=== PATIENT | male | born 1975 | race Caucasian/White ===

== ENCOUNTER → 2019-04-08 | Outpatient (CLI) | payer BC ==
--- NOTE | 2019-04-08 12:45 | ECHOF ---
Referral Reason:I65.2 carotid occlusion, R55 Syncope MEASUREMENTS -------- HEIGHT: 180.3 cm WEIGHT: 79.8 kg BP: IVSd: 0.9 cm (0.6 - 1.1) LVIDd: 4.0 cm (3.9 - 5.3) LVPWd: 0.9 cm (0.6 - 1.1) IVSs: 1.1 cm LVIDs: 2.4 cm LVPWs: 1.4 cm LAESV Index (A-L): 17.38 ml/m Ao Diam: 3.0 cm (2.0 - 3.7) AV Cusp: 1.9 cm (1.5 - 2.6) LA Diam: 2.3 cm (2.7 - 3.8) MV EXCURSION: 12.495 mm (> 18.000) MV EF SLOPE: 65 mm/s (70 - 150) EPSS: 0.6 cm MV E Elkin: 0.58 m/s MV DecT: 304 ms MV A Elkin: 0.56 m/s MV E/A Ratio: 1.03 RAP: 5.00 mmHg RVSP: 21.24 mmHg TAPSE: 25.68 mm FINDINGS -------- Sinus rhythm. This was a technically good study. The left ventricular size is normal. Left ventricular wall thickness is normal. Overall left vent ricular systolic function is normal with, an EF between 55 - 60 %. The diastolic filling pattern is normal for the age of the patient 7.06. The right ventricle is normal in size. The right ventricular systolic function is normal. The left atrial size is normal. Normal LA size by volume 22+/-6 ml/m2. The right atrial size is normal. Interatrial and interventricular septum intact. The aortic valve is trileaflet and appears structurally normal. The mitral valve is normal. There is trace mitral regurgitation. The tricuspid valve appears structurally normal. Trace tricuspid regurgitation present. Right annetta tricular systolic pressure is normal at < 35 mmHg. There is no pulmonic regurgitation present. The aortic root size is normal. Normal inferior vena cava with normal inspiratory collapse consistent with estimated right atrial pre ssure of 5 mmHg. There is no pericardial effusion. CONCLUSIONS -------- 1. Sinus rhythm. 2. This was a technically good study. 3. The left ventricular size is normal. 4. Left ventricular wall thickness is normal. 5. Overall left ventricular systolic function is normal with, an EF between 55 - 60 %. 6. The diastolic filling pattern is normal for the age of the patient 7.06 7. The right ventricle is normal in size. 8. The right ventricular systolic function is normal. 9. The left atrial size is normal. 10. Normal LA size by volume 22+/-6 ml/m2. 11. The right atrial size is normal. 12. Interatrial and interventricular septum intact. 13. The aortic valve is trileaflet and appears structurally normal. 14. The mitral valve is normal. 15. There is trace mitral regurgitation. 16. The tricuspid valve appears structurally normal. 17. Trace tricuspid regurgitation present. 18. Right ventricular systolic pressure is normal at < 35 mmHg. 19. There is no pulmonic regurgitation present. 20. The aortic root size is normal. 21. Normal inferior vena cava with normal inspiratory collapse consistent with estimated right atrial pressure of 5 mmHg. 22. There is no pericardial effusion. [employer]OWER[employer] SUPERVISOR: Amber Martinez RDCS
--- NOTE | 2019-04-08 13:22 | US ---
EXAMINATION TYPE: US carotid duplex BILAT DATE OF EXAM: 04/08/2019 COMPARISON: NONE CLINICAL HISTORY: I65.2 carotid occlusion, R55 Syncope. EXAM MEASUREMENTS: RIGHT: Peak Systolic Velocity (PSV) cm/sec ----- Right CCA: 141.1 ----- Right ICA: 152.4 ----- Right ECA: 89.5 ICA/CCA ratio: 1.1 RIGHT: End Diastole cm/sec ----- Right CCA: 47.4 ----- Right ICA: 42.0 ----- Right ECA: 1.1 LEFT: Peak Systolic Velocity (PSV) cm/sec ----- Left CCA: 145.0 ----- Left ICA: 114.2 ----- Left ECA: 97.6 ICA/CCA ratio: 0.8 LEFT: End Diastole cm/sec ----- Left CCA: 46.5 ----- Left ICA: 50.3 ----- Left ECA: 27.1 VERTEBRALS (direction of flow): Right Vertebral: Antegrade Left Vertebral: Antegrade Rhythm: Normal Mild homogeneous plaque with no significant stenosis Grayscale, color Doppler, spectral Doppler imaging performed of the carotid arteries. Waveform analys is does not show significant stenosis of the internal carotid arteries. IMPRESSION: No hemodynamic significant stenosis of the proximal internal carotid arteries bilaterall y by Doppler criteria, indirect measurement of carotid stenosis Criteria for Assigning % of Stenosis / Diameter reduction (Estimation based on the indirect measurements of the internal carotid artery velocities (ICA PSV). 1. Normal (no stenosis)=ICA PSV < 125 cm/s: ratio < 2.0: ICA EDV<40 cm/s. 2. Less than 50% stenosis=ICA PSV < 125 cm/s: ratio < 2.0: ICA EDV<40 cm/s. 3. 50 to 69% stenosis=ICA PSV of 125 to 230 cm/s: ration 2.0 ? 4.0: ICA EDV 40-100 cm/s. 4. Greater than 70% stenosis to near occlusion= ICA PSV > 230 cm/s: ratio > 4.0: ICA EDV > 100 cm/s. 5. Near occlusion= ICA PSV velocities may be low or undetectable: variable ratio and ICA EDV. 6. Total occlusion=unable to detect flow.
--- NOTE | 2019-04-08 13:29 | EST ---
EXERCISE STRESS DATE OF SERVICE: 04/08/2019 AGE: 44 SEX: Male HT: 6'0" WT: 176 pounds PROTOCOL: Sharif STAGE: III DURATION OF EXERCISE: 9 minutes HEART RATE REST: 77 BLOOD PRESSURE REST: 130/86 MAXIMUM HEART RATE ACHIEVED: 160 MAXIMUM BLOOD PRESSURE: 177/90 85% MPHR: 150 100% MPHR: 177 METS: 10.3 INDICATIONS: CLINICAL INFORMATION: Baseline EKG revealed normal sinus rhythm without significant ST-T changes. There was slight leftward axis. Patient walked for 9 minutes. Maximal heart rate 160 beats per minute which is well above 85%. No angina or arrhythmia. EKG was unremarkable for ischemia. Good exercise capacity with a negative stress test by EKG criteria. MMODL / IJN: [id number] /
== END | disposition home or self-care (01) ==
LOC: RADNMMAIN 08:34
PROVIDERS: ATTEND Family Medicine
DX: I65.29 Occlusion and stenosis of unspecified carotid artery (principal); R55 Syncope and collapse
CPT/HCPCS: 93017; 93306; 93880

== ENCOUNTER → 2022-10-24 | Outpatient (CLI) | payer BC ==
--- NOTE | 2022-10-24 10:27 | MR ---
EXAMINATION TYPE: MR brain/cspine wo/w DATE OF EXAM: 10/24/2022 9:04 AM CLINICAL INDICATION:Male, 47 years old with history of G35 MS, spasticity, finger tingling COMPARISON: 04/05/2014 TECHNIQUE: Multiplanar, multisequence images of the brain and brainstem is performed. Multi planar, multi sequence imaging was performed utilizing: T1-weighted, T2-weighted, and turbo inv ersion recovery imaging of the cervical spine. MR IV Contrast: 9.5 cc Gadavist FINDINGS: BRAIN: Scattered white matter changes some of which are orthogonal to the lateral ventricle. There is no melecio dence of restricted diffusion. These areas are significantly changed from 2014. No abnormal enhanceme nt to suggest active demyelination Diffusion weighted images demonstrate no evidence of a recent infarct or other diffusion abnormality. There is no extra-axial fluid collection. The ventricular system and cisternal spaces are normal i n size and appearance. The brain volume is age appropriate. Midline structures demonstrate normal mo rphology. The craniocervical junction appears within normal limits. The dural venous sinuses appear patent. Post contrast images demonstrate no abnormal enhancement The bone marrow signal is within normal limits. Paranasal sinuses and mastoid air cells: Mild scattered paranasal sinus disease. Visualized orbits: Orbital contents are intact. C-SPINE: Alignment: The cervical vertebral bodies have preserved heights. Alignment is within normal limits gi annetta patient positioning. Bones: Multilevel degenerative disc disease is noted and most pronounced at the C3-C4, C5-C6 vertebra l levels. Old signal is maintained. No abnormal postcontrast enhancement. Cord: Abnormal increased signal involving the posterior spinal cord at the level of C3-C4 which is se en on prior in 2013. No abnormal postcontrast enhancement. Discs: Multilevel disc desiccation is present. C2-C3: No significant disc pathology. The spinal canal is patent. Bilateral facet and uncovertebral joint arthropathy are present with moderate left and mild right neural foraminal stenosis. C3-C4: Left central disc protrusion which impresses upon the spinal cord with moderate spinal canal s tenosis. There is superior migration of 7 mm of disc material. Additionally a right central/foraminal disc protrusion is also present. This narrows the neural foramen. Bilateral facet and uncovertebral joint arthropathy are present with severe bilateral neural foraminal stenosis. C4-C5: A disc osteophyte complex is present which minimally narrows the ventral subarachnoid space. Bilateral facet and uncovertebral joint arthropathy are present with moderate severe right and mild to moderate left neural foraminal stenosis. C5-C6: A disc osteophyte complex is present which minimally narrows the ventral subarachnoid space. Bilateral facet and uncovertebral joint arthropathy are present with mild bilateral neural foraminal stenosis. C6-C7: No significant disc pathology. The spinal canal is patent. No neural foraminal stenosis. C7-T1: No significant disc pathology. The spinal canal is patent. No neural foraminal stenosis. Other: None. IMPRESSION: Brain: 1. Stable appearance of the white matter changes in the brain. 2014. No evidence of restricted diffu kelly or enhancement to suggest active demyelination. 2. No evidence of intracranial mass, acute/subacute infarct, or abnormal enhancement. C Spine: 1. C3-C4 Left central disc protrusion which impresses upon the spinal cord with moderate spinal mikaela l stenosis. Additionally a right central/foraminal disc protrusion is also present. This narrows the neural foramen. There is superior migration of 7 mm of disc material. Severe bilateral neural foramin al stenosis at this level. 2. Increased cord signal at the level C3-C4 posteriorly which is similar to 2014. No evidence for en hancement to suggest active demyelination within the cervical spinal cord or upper thoracic spine cor d.
== END | disposition home or self-care (01) ==
LOC: RADMRIMAIN 07:57
PROVIDERS: ATTEND Psychiatry & Neurology Neurology
DX: G35 Multiple sclerosis (principal); M50.21 Other cervical disc displacement, high cervical region; M48.02 Spinal stenosis, cervical region; M99.71 Connective tissue and disc stenosis of intervertebral foramina of cervical region
CPT/HCPCS: 70553; 72156; A9585

== ENCOUNTER → 2024-10-21 | Outpatient (CLI) | payer BC ==
--- NOTE | 2024-10-27 12:33 | MR ---
EXAMINATION TYPE: MR brain/cspine wo/w DATE OF EXAM: 10/21/2024 7:29 PM COMPARISON: 10/24/2022 CLINICAL INDICATION: Male, 49 years old with history of G35 MULTIPLE SCLEROSIS, MS Check-up, Slight p rogression of difficulty walking and tightness in low back, TECHNIQUE: Multiplanar, multiecho imaging on a 3.0 [place] magnet is performed through the brain. Stud y is performed within 24 hours of arrival to the hospital.Multiplanar, multiecho imaging on a 3.0 [place] la magnet is performed through the knee. IV Contrast: 9 mL Gadobutrol (None, if empty) FINDINGS: The craniovertebral junction is normal. The pituitary is normal. Optic chiasm appears normal Diffusion-weighted imaging is performed. No abnormal hyperintensity is present to suggest an acute i ntracranial infarct or acute ischemic change. There are a few scattered hyperintensities in the. Ventricular white matter some which are perpendicu lar to the lateral ventricles. Findings could suggest but are not diagnostic for multiple sclerosis. Differential diagnosis should include microvascular ischemic change Lyme disease or migraine headache s vasculitis. No suspicious enhancement evident. Reference lesions: 1. Left centrum semiovale measuring 0.8 x 0.5 centimeters. Series 1502, image 24. Stable from compari son. 2. Right oquendo radiata adjacent to the posterior right lateral ventricle measuring 1.0 x 0.3 cm. Melly or measurement 0.9 x 0 4 cm series 1502, image 22. Ventricles and sulci are appropriate for the patient age. IMPRESSION: 1. Scattered white matter changes can be compatible with multiple sclerosis. Findings appear stable. EXAMINATION TYPE: MR brain/cspine wo/w DATE OF EXAM: 10/21/2024 7:29 PM COMPARISON: None. CLINICAL INDICATION: Male, 49 years old with history of G35 MULTIPLE SCLEROSIS, MS Check-up, Slight p rogression of difficulty walking and tightness in low back, TECHNIQUE: Multiplanar multiecho imaging on a 3.0 [place] magnet is performed through the cervical spin e. IV Contrast: 9 mL Gadobutrol (None, if empty) FINDINGS: The craniovertebral junction is normal. Vertebral body alignment is normal. Spinal cord maintains normal signal throughout its visualized course. There is some subtle white matter changes in the posterior cervical spinal cord at the C3-4 level. Th is appears to be present previously C7-T1: There is central subligamentous disc herniation with mild anterior thecal sac compression. No AP spinal canal stenosis or neural foraminal stenosis.. C6-7: Tiny central subligamentous disc herniation is present with mild anterior thecal sac compressio n. No cord contact or spinal canal stenosis present. Neural foramen are patent. C5-6: Broad-based disc bulge has mild anterior thecal sac compression. No cord contact is evident. No spinal canal stenosis or neural foraminal stenosis.. C4-5: Broad-based disc bulge is present with mild anterior thecal sac flattening. No AP spinal canal stenosis or neural foraminal stenosis. C3-4: Disc bulge is present at both left and right paracentral regions. This appears larger in the le ft paracentral region with moderate anterior thecal sac compression. Cord contact and some cord patsy ening is present. Spinal canal narrowing is present bilateral foraminal stenosis is present.. C2-3: No focal disc herniation or significant disc bulge is evident. No spinal canal stenosis or klaudia ral foraminal stenosis is present. No suspicious enhancement. IMPRESSION: 1. Left and right paracentral disc herniation C3-4. There may be some encephalomalacia present with s ignal change in the posterior left spinal cord. Given the patient's history, multiple sclerosis plaqu e is also within the differential. Findings appear stable from the comparison study. 2. Subligamentous disc herniations mid and lower cervical spine without cord contact or deformity dis cussed above [facility] Kathleen Leahy, , 10/27/2024 12:31 PM
== END | disposition home or self-care (01) ==
LOC: RADMRIMAIN 17:52
PROVIDERS: ATTEND Psychiatry & Neurology Neurology
DX: G35 Multiple sclerosis (principal); R90.82 White matter disease, unspecified
CPT/HCPCS: 70553; 72156; A9585

== ENCOUNTER → 2024-10-28 | Outpatient (CLI) | payer BC ==
--- NOTE | 2024-10-28 18:09 | MR ---
EXAMINATION TYPE: MR thoracic spine wo/w con DATE OF EXAM: 10/28/2024 5:50 PM COMPARISON: 04/06/2014. CLINICAL INDICATION: Male, 49 years old with history of G35 MULTIPLE SCLEROSIS; PHH, MS, spasticity, slight intermitted walking disturbance. TECHNIQUE: Multi planar, multi sequence imaging was performed utilizing: T1-weighted, short-tau inver kelly recovery and T2-weighted of the thoracic spine. IV Contrast: 9 mL Gadobutrol (None, if empty) FINDINGS: Alignment: Alignment is within normal limits. Vertebral bodies have preserved heights. Spinal cord: Their is abnormal cord signal at the level of the inferior endplate of T7 to the inferio r endplate of T8. Prominently in the left central region. No abnormal enhancement is seen within this region. No other areas of abnormal enhancement definitively visualized. Discs: Intervertebral disc signal is maintained. No evidence of significant spinal canal or neural fo raminal stenosis. There is no evidence of extradural defects or central spinal canal narrowing at any thoracic vertebral body level. Mild spinal canal narrowing at T10-T11 and T11-T12 due to facet joint arthropathy. Osseous structures: No abnormal bony edema on inversion recovery sequences. Multilevel osteophyte for mation and facet joint arthropathy. Scattered disc space narrowing. IMPRESSION: 1. Abnormal cord signal which could be compatible with multiple sclerosis at the level of T7 and T8. 2. Mild spinal canal stenosis at T10-T11 and T11-T12 degenerative facet joint arthropathy. [facility], , 10/28/2024 6:07 PM
== END | disposition home or self-care (01) ==
LOC: RADMRIMAIN 16:22
PROVIDERS: ATTEND Psychiatry & Neurology Neurology
DX: G35 Multiple sclerosis (principal); M48.04 Spinal stenosis, thoracic region; M47.814 Spondylosis without myelopathy or radiculopathy, thoracic region
CPT/HCPCS: 72157; A9585